=== PATIENT | female | born 2000 | race Caucasian/White ===

== ENCOUNTER 2021-01-18 00:49 | Emergency (ER) | payer OTHER ==
[2021-01-18 01:14] LABS: HEMOGLOBIN 15.7 gm/dl (12.3-15.3); RED BLOOD COUNT 5.56 M/UL (4.00-5.10); WHITE BLOOD COUNT 13.5 K/UL (4.5-11.0)
[2021-01-18 01:33] LABS: BUN/CREATININE RATIO 13 (0-10)
[2021-01-18] MEDS ORDERED: HYDROCODON-ACE1 EAC4 PO (03:36)
[2021-01-18] MEDS ORDERED: IBUPROFEN600 MG PO (03:36)
== END 2021-01-18 05:00 | disposition home or self-care (01) ==
LOC: ER1 00:49
PROVIDERS: Emergency Medicine
DX: S42.024A Nondisplaced fracture of shaft of right clavicle, initial encounter for closed fracture (principal); S01.01XA Laceration without foreign body of scalp, initial encounter; V86.99XA Unspecified occupant of other special all-terrain or other off-road motor vehicle injured in nontraffic accident, initial encounter; Y92.89 Other specified places as the place of occurrence of the external cause; Z23 Encounter for immunization
CPT/HCPCS: 70450; 71045; 71260; 72125; 72170; 73060; 73090; 73562; 73590; 80053; 83605; 84703; 85025; 85610; 85730; 86850; 86900; 86901; 90471; 90715; 96374; 96375; 96376; 99284; G0480; J1885; J2270; J2405; J7030; Q9967